=== PATIENT | male | born 1970 | race Caucasian/White ===

== ENCOUNTER 2020-08-23 10:00 | Emergency (ER) | payer OTHER ==
[~2020-08-23] VITALS: Ht 177.8 cm; Wt 91.0 kg
--- NOTE | 2020-08-23 11:11 | NUR ---
RIGHT OF WAY WORKER: PT NA X 1
--- NOTE | 2020-08-23 11:15 | NUR ---
BEHAVIORAL TECHNICIAN: PT AMBULATORY TO ROOM FROM CANDICE MARTÍNEZ
--- NOTE | 2020-08-23 11:20 | NUR ---
MOTOR VEHICLE SALESPERSON: URINE COLLECTED AND SENT TO LAB
[2020-08-23 11:31] LABS: MICROSCOPIC AUTO
[2020-08-23 11:58] LABS: BASOPHILS % (AUTO) 1 % (0-1); EOSINOPHILS % (AUTO) 1 % (1-7); LYMPHOCYTES % (AUTO) 11 % (22-44); MEAN CORPUSCULAR HEMOGLOBIN 29.4 pg (27.5-34.5); MEAN CORPUSCULAR HGB CONC 34.1 g/dL (33.2-36.2); MONOCYTES % (AUTO) 4 % (2-9); NEUTROPHILS % (AUTO) 83 % (42-75); PLATELET COUNT 330 x10^3/uL (130-400); RED BLOOD COUNT 5.41 x10^6/uL (4.38-5.82); RED CELL DISTRIBUTION WIDTH 13.8 % (9.4-14.8)
[2020-08-23] MEDS ORDERED: SODIUM CHLORIDE 0.9% 1,000ML IV ONE (12:00)
[2020-08-23] MEDS ORDERED: ONDANSETRON 2MG/ML, 2ML IVPush ONE (12:00)
[2020-08-23] MEDS ORDERED: SODIUM CHLORIDE FLUSH 10ML SYR IVF ONE (12:00)
[2020-08-23] MEDS ORDERED: KETOROLAC 30 MG/1 ML IVPush ONE (12:00)
[2020-08-23 12:06] LABS: ALBUMIN 4.5 g/dL (3.4-5.0); ANION GAP 3 mmol/L (5-15); CALCIUM 9.3 mg/dL (8.5-10.1); CHLORIDE 107 mmol/L (98-107)
[2020-08-23 12:08] LABS: MD NO
[2020-08-23 12:09] LABS: ALANINE AMINOTRANSFERASE 41 U/L (12-78); ALKALINE PHOSPHATASE 75 U/L (45-117); BILIRUBIN,TOTAL 0.7 mg/dL (0.2-1.0); CREATININE 1.23 mg/dL (0.7-1.3); TOTAL PROTEIN 7.8 g/dL (6.4-8.2)
--- NOTE | 2020-08-23 12:26 | NUR ---
Isma calle in [facility] - 08/23/20 at 1227 by CIERA pt at ct 1215
[2020-08-23] MEDS ORDERED: KETOROLAC 30 MG/1 ML ONE (12:38)
[2020-08-23] MEDS ORDERED: ONDANSETRON 2MG/ML, 2ML ONE (12:38)
--- NOTE | 2020-08-23 12:51 | NUR ---
piv est on r ac with no complications. pt medicated per emar. ns infusing at this time.
--- NOTE | 2020-08-23 13:13 | NUR ---
ct paged at this time.
[2020-08-23] MEDS ORDERED: CEFTRIAXONE 1,000 MG in DEXTROSE 5% 50 ML IVPB ONE (13:30)
--- NOTE | 2020-08-23 14:15 | NUR ---
pt resting in [facility]. pt's aox4. resps even and unlabored. awaiting order.
--- NOTE | 2020-08-23 14:45 | NUR ---
lab at bedside for bc at this time.
[2020-08-23 14:48] VITALS: BP 154/80
--- NOTE | 2020-08-23 14:51 | NUR ---
ABX INFUSING AT THIS TIME AFTER BC X 2. PT TOLERATED WELL.
--- NOTE | 2020-08-23 15:12 | NUR ---
edmd at bedside to explain all results at this time.
--- NOTE | 2020-08-23 16:17 | NUR ---
Patient given discharge instructions and they have confirmed that they understand the instructions. Patient ambulatory with steady gait.
== END 2020-08-23 16:18 | disposition home or self-care (01) ==
LOC: ED 13:58
DX: N30.01 Acute cystitis with hematuria (principal); N20.1 Calculus of ureter; R10.9 Unspecified abdominal pain; Z87.891 Personal history of nicotine dependence
CPT/HCPCS: 36415; 74176; 80053; 81001; 83690; 85025; 87040; 87086; 96361; 96365; 96375; 99284; J0696; J1885; J2405; J7030; 29125

== ENCOUNTER 2020-09-11 12:51 | Observation (INO) | payer OTHER ==
[~2020-09-11] VITALS: Ht 177.8 cm; Wt 91.8 kg
--- NOTE | 2020-09-11 13:06 | NUR ---
ERP AT NOW.
[2020-09-11] MEDS ORDERED: KETOROLAC 30 MG/1 ML ONE (13:23)
[2020-09-11] MEDS ORDERED: HYDROmorphone 1 MG/ML, 1ML INJ ONE ×2 (13:23→14:40)
[2020-09-11 13:28] LABS: BASOPHILS % (AUTO) 1 % (0-1); EOSINOPHILS % (AUTO) 5 % (1-7); LYMPHOCYTES % (AUTO) 20 % (22-44); MEAN CORPUSCULAR HGB CONC 33.8 g/dL (33.2-36.2); MEAN PLATELET VOLUME 7.2 fL (7.4-10.4); MONOCYTES % (AUTO) 5 % (2-9); NEUTROPHILS % (AUTO) 70 % (42-75); PLATELET COUNT 330 x10^3/uL (130-400); RED BLOOD COUNT 4.99 x10^6/uL (4.38-5.82); RED CELL DISTRIBUTION WIDTH 14.2 % (9.4-14.8)
[2020-09-11] MEDS ORDERED: SODIUM CHLORIDE FLUSH 10ML SYR IVF ONE (13:30)
[2020-09-11] MEDS ORDERED: HYDROmorphone 1 MG/ML, 1ML INJ IV ONE ×2 (13:30→15:00)
[2020-09-11] MEDS ORDERED: KETOROLAC 30 MG/1 ML IVPush ONE (13:30)
[2020-09-11 13:35] LABS: MD NO
[2020-09-11 13:39] LABS: ALBUMIN 4.3 g/dL (3.4-5.0); ANION GAP 3 mmol/L (5-15); CHLORIDE 112 mmol/L (98-107)
--- NOTE | 2020-09-11 13:56 | NUR ---
PT TO CT VIA [facility].
[2020-09-11 14:10] LABS: MICROSCOPIC INDICATED
--- NOTE | 2020-09-11 15:03 | NUR ---
UROLOGIST AT . Addendum: 09/11/20 at 1510 by HB[facility] HOSPITALIST AT .
[2020-09-11] MEDS ORDERED: ONDANSETRON 2MG/ML, 2ML IVPush PRN (15:30)
[2020-09-11] MEDS ORDERED: OXYcodone IR 5MG TABLET PO PRN (15:30)
[2020-09-11] MEDS ORDERED: ACETAMINOPHEN 325 MG TABLET PO PRN (15:30)
[2020-09-11] MEDS ORDERED: METOCLOPRAMIDE 5 MG/ML, 2ML IVPush PRN (15:30)
--- NOTE | 2020-09-11 15:32 | NUR ---
PT UNDERSTANDS PLAN FOR ADMISSION.
[2020-09-11] MEDS: LACTATED RINGERS 1,000 ML IV SCH ×2 (15:42→20:57)
[2020-09-11] MEDS: MORPHINE SULFATE 4 MG/ML, 1ML IVPush PRN ×3 (16:30→22:36)
[2020-09-11] MEDS ORDERED: METHOCARBAMOL 500 MG TABLET PO PRN (16:35)
[2020-09-11 19:17] VITALS: BP 127/89
[2020-09-11] MEDS ORDERED: TRAZODONE 50MG TABLET PO PRN (21:00)
[2020-09-12 00:58] VITALS: BP 141/83
[2020-09-12] MEDS: LACTATED RINGERS 1,000 ML IV SCH ×3 (04:09→18:10)
[2020-09-12 05:39] LABS: CHLORIDE 109 mmol/L (98-107)
[2020-09-12 05:54] LABS: ANION GAP 6 mmol/L (5-15); CALCIUM 8.5 mg/dL (8.5-10.1); CREATININE 1.64 mg/dL (0.7-1.3)
[2020-09-12 06:58] VITALS: BP 139/81
[2020-09-12] MEDS: MORPHINE SULFATE 4 MG/ML, 1ML IVPush PRN ×4 (07:27→13:29)
[2020-09-12] MEDS: TAMSULOSIN 0.4 MG CAP.ER.24H PO SCH ×2 (09:00→18:43)
[2020-09-12] MEDS ORDERED: FENTANYL PF 100 MCG/2ML ONE (13:25)
[2020-09-12] MEDS ORDERED: MIDAZOLAM 1 MG/ML, 2ML ONE (13:25)
[2020-09-12] MEDS ORDERED: MORPHINE SULFATE 4 MG/ML, 1ML IVPush ONE (13:30)
[2020-09-12] MEDS ORDERED: CHLORHEXIDINE 15 ML UDC ONE (13:37)
[2020-09-12] MEDS ORDERED: PROMETHAZINE 25 MG/ML, 1ML IVPush PRN (14:00)
[2020-09-12] MEDS ORDERED: LABETALOL 5MG/ML, 20ML IV PRN (14:00)
[2020-09-12] MEDS ORDERED: HYDROmorphone 1 MG/ML, 1ML INJ IVPush PRN (14:00)
[2020-09-12] MEDS ORDERED: HALOPERIDOL 5 MG/ML IV PRN (14:00)
[2020-09-12] MEDS ORDERED: DIPHENHYDRAMINE 50 MG/ML, 1ML IVPush PRN (14:00)
[2020-09-12] MEDS ORDERED: FENTANYL PF 100 MCG/2ML IV PRN (14:00)
[2020-09-12] MEDS ORDERED: hydrALAzine 20 MG/ML, 1ML IV PRN (14:00)
[2020-09-12] MEDS ORDERED: OXYcodone 5 MG/5 ML ORAL.SOL UDC PO PRN (14:00)
[2020-09-12] MEDS ORDERED: MEPERIDINE/PF 25MG/0.5ML IVPush PRN (14:00)
[2020-09-12] MEDS ORDERED: CEFAZOLIN 1,000 MG ONE (14:29)
[2020-09-12] MEDS ORDERED: PROPOFOL 10 MG/ML, 20ML ONE (14:29)
[2020-09-12] MEDS ORDERED: DEXAMETHASONE 4 MG/ML, 1ML ONE (14:29)
[2020-09-12] MEDS ORDERED: ONDANSETRON 2MG/ML, 2ML ONE (14:29)
[2020-09-12] MEDS ORDERED: TAMS-11 PO (17:26)
[2020-09-12] MEDS ORDERED: OXYC5TAB98 PO (17:26)
[2020-09-12 20:14] VITALS: BP 127/75
== END 2020-09-12 18:30 | disposition home or self-care (01) ==
LOC: ED 14:23 → INTOOBSV 15:04 → EDIP 15:04 → OBSVTOIN 15:24 → INTOOBSV 15:24 → 3N 16:05
PROVIDERS: ADMIT Hospitalist; ATTEND Internal Medicine
DX: N20.2 Calculus of kidney with calculus of ureter (principal); Z20.822 Contact with and (suspected) exposure to COVID-19; N13.9 Obstructive and reflux uropathy, unspecified; N17.9 Acute kidney failure, unspecified; Z87.891 Personal history of nicotine dependence; Z79.899 Other long term (current) drug therapy
CPT/HCPCS: 36415; 52356; 74018; 74176; 80048; 81001; 82040; 85025; 87635; 96361; 96374; 96375; 96376; 99284; C1758; C1769; C2617; G0378; J0690; J1100; J1170; J1885; J2250; J2270; J2405; J2704; J3010; J7120; 76000; 99285